=== PATIENT | female | born 1975 | race Caucasian/White ===

== ENCOUNTER 2016-12-04 02:26 | Emergency (ER) | payer SELFPAY ==
[~2016-12-04] VITALS: Ht 175.3 cm; Wt 72.0 kg
[~2016-12-04 02:26] MED LIST: FLUTI110I INH; PRED20 PO; VENTAER INH
[2016-12-04 02:28] VITALS: BP 138/83; PULSE 112; RESP 22; TEMP 98.5; O2SAT 92
[2016-12-04 02:50] VITALS: BP 132/92; PULSE 106; RESP 24; O2SAT 93
[2016-12-04] MEDS ORDERED: methylPREDNISolone SOD SUCC 125 MG/2 ML VIAL IVP ONE (03:00)
[2016-12-04] MEDS ORDERED: SODIUM CHLORIDE 0.9% FLUSH 5 ML FLUSH IVF PRN (03:00)
[2016-12-04 03:19] VITALS: O2SAT 92
[2016-12-04] MEDS: RESP: ALBUTEROL 2.5 MG/IPRATROPIUM 0.5 MG NEB (SCH) INH (03:19)
[2016-12-04 03:35] LABS: AUTOMATED NEUTROPHIL # 5.9 TH/MM3 (1.8-7.7); BASOPHIL % 0.5 % (0.0-2.0); EOSINOPHIL % 12.3 % (0.0-4.0); HEMATOCRIT 38.3 % (35.0-46.0); LYMPH % 13.6 % (9.0-44.0); LYMPHOCYTE # 1.1 TH/MM3 (1.0-4.8); MEAN CELL VOLUME 73.4 FL (80.0-100.0); MEAN CORPUSCULAR HEMOGLOBIN 23.7 PG (27.0-34.0); MEAN CORPUSCULAR HGB CONC 32.3 % (32.0-36.0); MONO % 3.2 % (0.0-8.0); NEUT % 70.4 % (16.0-70.0); PLATELET COUNT 334 TH/MM3 (150-450); RED BLOOD COUNT 5.22 MIL/MM3 (4.00-5.30); RED CELL DISTRIBUTION WIDTH 15.4 % (11.6-17.2); WHITE BLOOD COUNT 8.4 TH/MM3 (4.0-11.0)
--- NOTE | 2016-12-04 04:04 | PD ---
HPI Chief Complaint: Respiratory Symptoms Time Seen by Provider: 02:43 Travel History International Travel<30 days: No Contact w/Intl Traveler<30days: No Traveled to known affect area: No History of Present Illness HPI The patient is a 41 year old female who presents to the [facility] emergency department with a history of shortness of breath that she reports became worse over the last 2 days. She reports that she has a history of COPD. She reports that she is on Flovent and Ventolin. She denies having a primary care physician currently is she recently moved back to the area. The patient reports that over the last 2 days she's also had increasing cough and congestion. She reports that her cough is at times productive of a yellow to gonzalez sputum. The patient incidentally also reports that she injects IV drugs. She reports that she last injected opiates yesterday. She denies having any chest pain or pressure. She denies having any back pain or joint pain. She reports that she last had a fever last week with a MAXIMUM TEMPERATURE of 102. The patient denies any recent neck pain,abdominal pain, vomiting, diarrhea, urinary symptoms, or neurologic symptoms. [facility] Past Medical History Narrative Medical The patient's past medical history is significant for asthma, COPD, cerebrovascular accident in 2006 without any residual deficits, history of IV drug use. Asthma: Yes Blood Disorders: No Bipolar Disorder: Yes Anxiety: No Depression: No Cancer: No Cardiovascular Problems: No COPD: Yes Cerebrovascular Accident: Yes (2006) Diabetes: No Diminished Hearing: No Endocrine: No Gastrointestinal Disorders: No Genitourinary: No Immune Disorder: No Implanted Vascular Access Dvce: Yes Musculoskeletal: Yes Neurologic: Yes (CVA 09/30) Psychiatric: Yes (DIAGNOSED BI-POLAR 1987) Reproductive: No Respiratory: Yes (COPD, ASTHMA) Immunizations Current: Yes Thyroid Disease: No Tetanus Vaccination: < 5 Years Influenza Vaccination: No ?: Not LMP: ENDED 3 DAYS AGO : 2 Para: 2 Tubal Ligation: Yes Past Surgical History Narrative Surgical The patient's past surgical history is significant for a likely section, breast implants, bilateral tubal ligation, abdominoplasty. 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) Allergies-Medications (Allergen,Severity, Reaction): Coded Allergies: No Known Allergies (Verified , 12/04/16) Reported Meds & Prescriptions Reported Meds & Active Scripts Active Levaquin (Levofloxacin) 750 Mg Tab 750 Mg PO DAILY 6 Days Medrol Dosepak (Methylprednisolone) 4 Mg Dspk 4 Mg PO DIRECTED Per Pharmacist direction Ventolin Hfa 18 GM Inh (Albuterol Sulfate) 90 Mcg/Act Aer 2 Puff INH Q4H PRN Flovent Hfa 12 GM Inh (Fluticasone Propionate) 110 Mcg/Act Inh 2 Puff INH BID Reported Ventolin Hfa 18 GM Inh (Albuterol Sulfate) 90 Mcg/Act Aer 2 Puff INH Q4H PRN Review of Systems Except as stated in HPI: all other systems reviewed are Neg General / Constitutional: Positive: Fever, No: Chills Eyes: No: Visual changes HENT: Positive: Congestion, No: Headaches, Rhinorrhea Cardiovascular: Positive: Dyspnea on exertion, No: Chest Pain or Discomfort, Diaphoresis Respiratory: Positive: Cough, Shortness of Breath, Wheezing Gastrointestinal: No: Nausea, Vomiting, Diarrhea, Abdominal Pain Genitourinary: No: Dysuria Musculoskeletal: No: Pain Skin: No Rash Neurologic: No: Weakness, Focal Abnormalities, Change in Mentation, Slurred Speech, Sensory Disturbance Psychiatric: No: Depression Endocrine: No: Polydipsia Hematologic/Lymphatic: No: Easy Bruising Physical Exam Narrative General: The patient is a well-developed well-nourished female in no acute distress, initial O2 saturation on room air is in the upper 80s. Head and Neck exam: Head is normocephalic atraumatic. Eyes: Pupils are equal round and reactive to light. Nose: Midline septum with pink mucous membranes Mouth: Dentition unremarkable. Moist mucus membranes. Posterior oropharynx is not erythematous. No tonsillar hypertrophy. Uvula midline. Airway patent. Neck: No palpable lymphadenopathy. No nuchal rigidity. No thyromegaly. No spinous process tenderness to palpation, no step-off or crepitus, no erythema or ecchymosis. Cardiovascular: Regular rate and rhythm without murmurs, gallops, or rubs. Lungs: Expiratory wheezes are audible throughout bilateral lung mccabe with accessory muscle use. No tripoding. No paroxysmal abdominal breathing. No conversational dyspnea. Abdomen: Soft, without tenderness to palpation in all 4 quadrants of the abdomen. No guarding, rebound, or rigidity. Normal bowel sounds are audible. Extremities: No clubbing, cyanosis, or edema. 2+ pulses in all 4 extremities. No calf tenderness on palpation. Back: No spinous process tenderness to palpation. No costovertebral angle tenderness to palpation. Neurologic Exam: Grossly nonfocal. Skin Exam: No rash noted. Intact skin that is warm and dry. Data Data Last Documented VS Vital Signs Date Time Temp Pulse Resp B/P Pulse Ox O2 Delivery O2 Flow Rate FiO2 12/04/16 04:16 111 24 120/75 95 Nasal Cannula 2 12/04/16 02:28 98.5 Orders Electrocardiogram (12/04/16 02:54) Complete Blood Count With Diff (12/04/16 02:54) Comprehensive Metabolic Panel (12/04/16 02:54) Blood Culture (12/04/16 02:54) C-Reactive Protein (Crp) (12/04/16 02:54) Urinalysis - C+S If Indicated (12/04/16 02:54) Westergren Sedimentation Rate (12/04/16 02:54) Magnesium (Mg) (12/04/16 02:54) Chest, Single Ap (12/04/16 02:54) Iv Access Insert/Monitor (12/04/16 02:54) Ecg Monitoring (12/04/16 02:54) Oximetry (12/04/16 02:54) Ed Urine Pregnancytest Poc (12/04/16 02:54) Lactic Acid Sepsis Protocol (12/04/16 02:54) Sodium Chloride 0.9% Flush (Ns Flush) (12/04/16 03:00) Methylprednisolone So Succ Inj (Solumedr (12/04/16 03:00) Albuterol-Ipratropium Neb (Duoneb Neb) (12/04/16 03:00) Levofloxacin 750 Mg Premix Inj (Levaquin (12/04/16 04:15) Labs Laboratory Tests Test 12/04/16 03:00 White Blood Count 8.4 TH/MM3 Red Blood Count 5.22 MIL/MM3 Hemoglobin 12.4 GM/DL Hematocrit 38.3 % Mean Corpuscular Volume 73.4 FL Mean Corpuscular Hemoglobin 23.7 PG Mean Corpuscular Hemoglobin 32.3 % Concent Red Cell Distribution Width 15.4 % Platelet Count 334 TH/MM3 Mean Platelet Volume 9.3 FL Neutrophils (%) (Auto) 70.4 % Lymphocytes (%) (Auto) 13.6 % Monocytes (%) (Auto) 3.2 % Eosinophils (%) (Auto) 12.3 % Basophils (%) (Auto) 0.5 % Neutrophils # (Auto) 5.9 TH/MM3 Lymphocytes # (Auto) 1.1 TH/MM3 Monocytes # (Auto) 0.3 TH/MM3 Eosinophils # (Auto) 1.0 TH/MM3 Basophils # (Auto) 0.0 TH/MM3 CBC Comment AUTO DIFF Differential Comment AUTO DIFF CONFIRMED Platelet Estimate NORMAL Platelet Morphology Comment NORMAL Ovalocytes 1+ Erythrocyte Sedimentation Rate 19 mm/hr Sodium Level 138 MEQ/L Potassium Level 4.1 MEQ/L Chloride Level 104 MEQ/L Carbon Dioxide Level 27.4 MEQ/L Anion Gap 7 MEQ/L Blood Urea Nitrogen 11 MG/DL Creatinine 0.65 MG/DL Estimat Glomerular Filtration 100 ML/MIN Rate Random Glucose 89 MG/DL Lactic Acid Level 0.6 mmol/L Calcium Level 8.8 MG/DL Magnesium Level 2.1 MG/DL Total Bilirubin 0.8 MG/DL Aspartate Amino Transf 12 U/L (AST/SGOT) Alanine Aminotransferase 11 U/L (ALT/SGPT) Alkaline Phosphatase 65 U/L C-Reactive Protein LESS THAN 0.29 MG/DL Total Protein 7.5 GM/DL Albumin 3.6 GM/DL MDM Medical Decision Making Medical Screen Exam Complete: Yes Emergency Medical Condition: Yes Medical Record Reviewed: Yes Differential Diagnosis COPD exacerbation, versus acute bronchitis, versus pneumonia Narrative Course During the course of the patients emergency department visit, the patients history, examination, and differential diagnosis were reviewed with the patient. The patient had IV access obtained and blood work sent for analysis. The patient's placed on a ekg monitor with oximetry and blood pressure monitoring. An EKG was done on arrival. The patient's EKG reveals a sinus tachycardia rate of 105, downsloping of the ST segment in lead V3, T waves are inverted in V1, no acute ST segment elevation. The patient was provided Solu-Medrol 125 mg IV, DuoNeb 3 were administered. The patient was given Levaquin 750 mg IV. The patients laboratory studies were reviewed and remarkable for a white count of 8.4, hemoglobin 12.4, platelets 334 with 70.4 neutrophils, 12.3 eosinophils, sedimentation rate is 19, CMP is unremarkable, C-reactive protein less than 0.29 , lactic acid 0.6. Radiology studies were reviewed and remarkable for bibasilar subsegmental atelectasis area no other acute abnormality. On reexamination, the patient has had improvement in her symptoms and is sleeping, however she still requires nasal cannula O2 and is saturating with 2 L 92%. Because of this, I recommended admission for evaluation and continued IV steroid, nebulizer treatments, however the patient reports that she has no one to take care of her dog. The patient will be leaving AGAINST MEDICAL ADVICE. The patient will be given a prescription for a refill of her Ventolin inhaler, Medrol Dosepak taper, and Levaquin. Sepsis Criteria SIRS Criteria (2 or more): Heart rate over 90, RR > 20 or PaCO2 < 32 Sepsis Criteria (SIRS+source): Infect source susp/known Diagnosis Primary Impression: COPD exacerbation Additional Impression: Acute bronchitis Qualified Code: J20.9 - Acute bronchitis, unspecified organism Referrals: Patient Assistance Program 1 day Patient Instructions: Acute Bronchitis (ED), COPD (Chronic Obstructive Pulmonary Disease) (ED), General Instructions Med/Other Pt SpecificInfo: Prescription(s) given Scripts Levofloxacin (Levaquin)750 Mg Phg868 Mg PO DAILY 6 Days Ref 0 Prov:Clau Sexton MD 12/04/16 Methylprednisolone Dosepak (Medrol Dosepak)4 Mg Dspk4 Mg PO DIRECTED #1 DSPK Ref 0 Per Pharmacist direction Prov:Clau Sexton MD 12/04/16 Albuterol 18 GM Inh (Ventolin Hfa 18 GM Inh)90 Mcg/Act Aer2 Puff INH Q4H PRN ( SHORTNESS OF BREATH) #1 INHALER Ref 0 Prov:Clau Sexton MD 12/04/16 Disposition: 07 AGAINST MEDICAL ADVICE Condition: Clau Eller MD Dec 04, 2016 04:04
[2016-12-04 04:09] LABS: HEMO FLAGS AUTO DIFF
[2016-12-04 04:11] LABS: ALKALINE PHOSPHATASE 65 U/L (45-117); TOTAL BILIRUBIN ADULT 0.8 MG/DL (0.2-1.0)
[2016-12-04] MEDS ORDERED: LEVOFLOXACIN 750 MG PREMIX INJ 150 ML IV ONE (04:15)
[2016-12-04 04:16] VITALS: BP 120/75; PULSE 111; RESP 24; O2SAT 95
[2016-12-04 04:24] LABS: ALT (GPT) 11 U/L (10-53); ANION GAP 7 MEQ/L (5-15); AST (GOT) 12 U/L (15-37); BICARBONATE 27.4 MEQ/L (21.0-32.0); BLOOD UREA NITROGEN 11 MG/DL (7-18); CHLORIDE 104 MEQ/L (98-107); GLOMERULAR FILTRATION RATE 100 ML/MIN (>89); MAGNESIUM 2.1 MG/DL (1.5-2.5); POTASSIUM 4.1 MEQ/L (3.5-5.1); SODIUM (NA) 138 MEQ/L (136-145)
[2016-12-04 04:35] LABS: OVALOCYTES 1+ (NORMAL); PLATELET ESTIMATE SMEAR NORMAL (NORMAL); PLATELET MORPHOLOGY NORMAL (NORMAL); SCAN/DIFF AUTO DIFF CONFIRMED
[2016-12-04] MEDS ORDERED: LEVA750T PO (04:53)
[2016-12-04] MEDS ORDERED: VENTAER INH (04:53)
[2016-12-04] MEDS ORDERED: MEDR4PAK PO (04:53)
--- NOTE | 2016-12-04 05:31 | RADRPT ---
EXAM DATE/TIME: 12/04/2016 03:19 [place] COMPARISON: No previous studies available for comparison. INDICATIONS : Short of breath. MEDICAL HISTORY : Chronic obstructive pulmonary disease. SURGICAL HISTORY : Breast augmentation. ENCOUNTER: Initial ACUITY: 3 days PAIN SCORE: 4/10 LOCATION: Bilateral chest FINDINGS: A single view of the chest demonstrates the lungs to be hyperaerated without evidence of mass, infilt rate or effusion. Minimal bibasilar subsegmental atelectasis. The cardiomediastinal contours are unre markable. Osseous structures are intact. CONCLUSION: Bibasilar subsegmental atelectasis. Man Craig MD on December 04, 2016 at 5:29 Board Certified Radiologist. This report was verified electronically.
--- NOTE | 2016-12-04 22:29 | EKG ---
Date Performed: 12/04/2016 Time Performed: 04:10:17 PTAGE: 41 years EKG: SINUS TACHYCARDIA ABNORMAL RHYTHM ECG NO PREVIOUS TRACING DOCTOR: Tyrone Bergeron Interpretating Date/Time 12/04/2016 22:26:12
== END 2016-12-04 07:34 | disposition left against medical advice (07) ==
LOC: NEPE 02:26
DX: J44.1 Chronic obstructive pulmonary disease with (acute) exacerbation (principal); J20.9 Acute bronchitis, unspecified; J45.909 Unspecified asthma, uncomplicated; F11.90 Opioid use, unspecified, uncomplicated; R94.31 Abnormal electrocardiogram [ECG] [EKG]
CPT/HCPCS: 71010; 80053; 83605; 83735; 84703; 85025; 85652; 86140; 87040; 93005; 94640; 94664; 96365; 96366; 96375; 99284; J1956; J2930

== ENCOUNTER 2017-01-02 20:31 | Emergency (ER) | payer SELFPAY ==
[~2017-01-02] VITALS: Ht 175.3 cm; Wt 76.0 kg
[~2017-01-02 20:31] MED LIST changes: +LEVA750T PO; +MEDR4PAK PO; -PRED20 PO
[2017-01-02 20:35] VITALS: BP 147/76; PULSE 117; RESP 24; TEMP 98.1; O2SAT 86
[2017-01-02 20:59] VITALS: RESP 22; O2SAT 93
[2017-01-02] MEDS ORDERED: predniSONE 20 MG TAB PO ONE (21:00)
[2017-01-02] MEDS ORDERED: AZITHROMYCIN 250 MG TAB PO ONE (21:00)
[2017-01-02] MEDS: RESP: ALBUTEROL 2.5 MG/IPRATROPIUM 0.5 MG NEB (SCH) INH ×2 (21:13→21:14)
[2017-01-02] MEDS ORDERED: FLUTI220I INH (21:20)
[2017-01-02] MEDS ORDERED: PRED-503 PO (21:20)
[2017-01-02] MEDS ORDERED: AZIT250T3 PO (21:20)
[2017-01-02] MEDS ORDERED: VENTAER INH (21:20)
--- NOTE | 2017-01-02 21:20 | PD ---
HPI Chief Complaint: Respiratory Symptoms Time Seen by Provider: 20:40 Travel History International Travel<30 days: No Contact w/Intl Traveler<30days: No Traveled to known affect area: No History of Present Illness HPI Is a 41-year-old woman with COPD, symptoms most days, getting her care entirely to the emergency department, out of her medications, who presents with worsening COPD symptoms. She has cough, shortness of breath. She has a history of active IV drug use. Symptoms been worse past 2 days. History Past Medical History Narrative Medical COPD Active IV drug use History of CVA History of bipolar disorder Tetanus Vaccination: > 5 Years LMP: 01/01/17 : 2 Para: 2 Social History Alcohol Use: No Tobacco Use: No (quit 1 year ago) Allergies-Medications (Allergen,Severity, Reaction): Coded Allergies: No Known Allergies (Verified , 01/02/17) Reported Meds & Prescriptions Reported Meds & Active Scripts Active Levaquin (Levofloxacin) 750 Mg Tab 750 Mg PO DAILY 6 Days Medrol Dosepak (Methylprednisolone) 4 Mg Dspk 4 Mg PO DIRECTED Per Pharmacist direction Ventolin Hfa 18 GM Inh (Albuterol Sulfate) 90 Mcg/Act Aer 2 Puff INH Q4H PRN Flovent Hfa 12 GM Inh (Fluticasone Propionate) 110 Mcg/Act Inh 2 Puff INH BID Reported Ventolin Hfa 18 GM Inh (Albuterol Sulfate) 90 Mcg/Act Aer 2 Puff INH Q4H PRN Review of Systems Except as stated in HPI: all other systems reviewed are Neg Physical Exam Narrative GENERAL: 41-year-old woman, no acute distress. SKIN: Warm and dry. HEAD: Atraumatic. Normocephalic. CARDIOVASCULAR: Regular rate and rhythm. No murmur appreciated. RESPIRATORY: Mild respiratory distress. Moderate diffuse wheezing. No Rales or rhonchi. GASTROINTESTINAL: Abdomen soft, non-tender, nondistended. Hepatic and splenic margins not palpable. MUSCULOSKELETAL: No obvious deformities. No edema. NEUROLOGICAL: Awake and alert. No obvious cranial nerve deficits. Motor grossly within normal limits. Normal speech. PSYCHIATRIC: Appropriate mood and affect; insight and judgment normal. Data Data Last Documented VS Vital Signs Date Time Temp Pulse Resp B/P Pulse Ox O2 Delivery O2 Flow Rate FiO2 01/02/17 20:59 22 93 Nasal Cannula 2 01/02/17 20:35 98.1 117 147/76 Orders Albuterol-Ipratropium Neb (Duoneb Neb) (01/02/17 21:00) Azithromycin (Zithromax) (01/02/17 21:00) Prednisone (Deltasone) (01/02/17 21:00) MDM Medical Decision Making Medical Screen Exam Complete: Yes Emergency Medical Condition: Yes Differential Diagnosis COPD, bronchitis, pneumonia, ACS, other Narrative Course Medical decision making 41-year-old woman of worsening COPD symptoms in the setting of being out of medications. States he cannot afford primary care control her medications. Recommended to follow up with patient assistance. No evidence of severe pneumonia or pneumothorax or other complication. Recommend outpatient follow- up. Diagnosis Primary Impression: COPD exacerbation Patient Instructions: General Instructions Additional Instructions: Take prednisone as prescribed. Take albuterol every 4-6 hours as prescribed. Use Flovent twice daily as prescribed. Follow-up with her primary physician for better control of her baseline COPD. Avoid IV drug use. Return to the emergency department for any new or worsening symptoms. Med/Other Pt SpecificInfo: Prescription(s) given Scripts Azithromycin 250 Mg Lpn790 Mg PO DAILY 4 Days Prov:Gray Chappell MD 01/02/17 Fluticasone 12 GM Inh (Flovent Hfa 12 GM Inh)220 Mcg/Act Inh2 Puff INH BID #1 INHALER Use daily at the same time. Prov:Gray Chappell MD 01/02/17 Albuterol 18 GM Inh (Ventolin Hfa 18 GM Inh)90 Mcg/Act Aer2 Puff INH Q4-6H PRN ( SHORTNESS OF BREATH) #1 INHALER Ref 6 Prov:Gray Chappell MD 01/02/17 Prednisone (Deltasone)20 Mg Tab40 Mg PO DAILY 10 Days Prov:Gray Chappell MD 01/02/17 Disposition: 01 DISCHARGE HOME Condition: Stable Gray Chappell MD Jan 02, 2017 21:20
[2017-01-02 21:32] VITALS: BP 138/72; PULSE 99; RESP 16; O2SAT 94
[2017-01-02] MEDS ORDERED: NEBULIZER1 MI1 (21:32)
== END 2017-01-02 21:42 | disposition home or self-care (01) ==
LOC: NEPC 20:31
DX: J44.1 Chronic obstructive pulmonary disease with (acute) exacerbation (principal)
CPT/HCPCS: 94640; 94664; 99283; J7512

== ENCOUNTER 2017-05-02 13:26 | Emergency (ER) | payer SELFPAY ==
[~2017-05-02] VITALS: Ht 175.3 cm; Wt 75.0 kg
[~2017-05-02 13:26] MED LIST changes: +AZIT250T3 PO; +FLUTI220I INH; +NEBULIZER1 MI1; +PRED-503 PO
[2017-05-02 13:29] VITALS: BP 123/75; PULSE 108; RESP 28; TEMP 97.8; O2SAT 93
--- NOTE | 2017-05-02 13:29 | PD ---
Physical Exam Date Seen by Provider: May 02, 2017 Time Seen by Provider: 13:28 [facility] Supervised Visit with JOHANNA: No Narrative Course 42 YO F with complaint of SOB since yesterday. PMH COPD, bronchitis. Denies current smoking. Vitals reviewed. Awaiting bed placement. Nessa Armenta May 02, 2017 13:29
[2017-05-02] MEDS ORDERED: ALBU1.25 NEB (13:41)
--- NOTE | 2017-05-02 13:43 | PD ---
HPI Chief Complaint: Respiratory Symptoms Time Seen by Provider: 13:40 Travel History International Travel<30 days: No Contact w/Intl Traveler<30days: No Traveled to known affect area: No History of Present Illness HPI Patient comes in complaining of COPD exacerbation that began yesterday. Patient states she's had similar in the past most recently approximately a month ago when she was on steroids that seemed to help. Patient has been using her inhaler with minimal relief of her symptoms. Patient thinks her allergies are making things worse. Patient denies any chest pain, fevers, nausea, vomiting, headache, developing, or . PFSH Past Medical History Asthma: Yes Blood Disorders: No Bipolar Disorder: Yes Anxiety: No Depression: No Cancer: No Cardiovascular Problems: No COPD: Yes Cerebrovascular Accident: Yes (2006) Diabetes: No Diminished Hearing: No Endocrine: No Gastrointestinal Disorders: No Genitourinary: No Immune Disorder: No Implanted Vascular Access Dvce: Yes Musculoskeletal: Yes Neurologic: Yes (CVA 09/30) Psychiatric: Yes (DIAGNOSED BI-POLAR 1987) Reproductive: No Respiratory: Yes (COPD) Immunizations Current: Yes Thyroid Disease: No ?: Unknown LMP: today : 2 Para: 2 Tubal Ligation: Yes Past Surgical History Abdominal Surgery: Yes (LIPOSUCTION) AICD: No Arteriovenous Shunt: No Body Medical Devices: BREAST IMPLANTS Cardiac Surgery: No Ear Surgery: No Endocrine Surgery: No Eye Surgery: No Genitourinary Surgery: No Gynecologic Surgery: Yes (TUBAL LIGATION) Insulin Pump: No Joint Replacement: No Neurologic Surgery: No Oral Surgery: No Pacemaker: No Thoracic Surgery: Yes (BREAST AUGMENTATION) Other Surgery: Yes (BREAST AUG, TUMMY TUCK) Social History Alcohol Use: No Tobacco Use: No (quit 1 year ago) Substance Use: No (hx iv drug user, heroin used on 01/02/17) Allergies-Medications (Allergen,Severity, Reaction): Coded Allergies: No Known Allergies (Verified , 01/02/17) Reported Meds & Prescriptions Reported Meds & Active Scripts Active Medrol Dosepak (Methylprednisolone) 4 Mg Dspk 4 Mg PO DIRECTED Per Pharmacist direction Ventolin Hfa 18 GM Inh (Albuterol Sulfate) 90 Mcg/Act Aer 2 Puff INH Q4-6H PRN Reported Albuterol Neb (Albuterol Sulfate) 1.25 Mg/3 Ml Neb 1.25 Mg NEB Q4HR NEB PRN Ventolin Hfa 18 GM Inh (Albuterol Sulfate) 90 Mcg/Act Aer 2 Puff INH Q4H PRN Review of Systems Except as stated in HPI: all other systems reviewed are Neg Physical Exam Narrative GENERAL: Well-developed, well nourished, in mild respiratory distress, and non- ill appearing. SKIN: Focused skin assessment warm and dry. HEAD: Atraumatic. Normocephalic. EYES: Pupils equal and round. EOMI. No scleral icterus. No injection or drainage. ENT: No nasal bleeding or discharge. Mucous membranes pink and moist. NECK: Trachea midline. Supple. No nuclear rigidity. CARDIOVASCULAR: Regular rate and rhythm. No murmur appreciated. RESPIRATORY: Accessory muscle use. Respiratory distress. Decreased breath sounds and wheezing noted throughout. Patient is able to answer questions in full sentences, but has pause in between each since. MUSCULOSKELETAL: No obvious deformities. No clubbing. No cyanosis. No edema. Full range of motion. NEUROLOGICAL: Awake and alert. No obvious cranial nerve deficits. Motor grossly within normal limits. Normal speech. PSYCHIATRIC: Appropriate mood and affect; insight and judgment normal. Data Data Last Documented VS Vital Signs Date Time Temp Pulse Resp B/P Pulse Ox O2 Delivery O2 Flow Rate FiO2 05/02/17 14:01 97 Nasal Cannula 4.00 05/02/17 13:36 19 05/02/17 13:29 97.8 108 123/75 Orders Albuterol-Ipratropium Neb (Duoneb Neb) (05/02/17 13:45) Complete Blood Count With Diff (05/02/17 13:37) Basic Metabolic Panel (Bmp) (05/02/17 13:37) Iv Access Insert/Monitor (05/02/17 13:37) Ecg Monitoring (05/02/17 13:37) Oximetry (05/02/17 13:37) Oxygen Administration (05/02/17 13:37) Chest, Single Ap (05/02/17 13:37) Sodium Chloride 0.9% Flush (Ns Flush) (05/02/17 13:45) Methylprednisolone So Succ Inj (Solumedr (05/02/17 13:45) Potassium Chloride (Kcl) (05/02/17 15:00) Labs Laboratory Tests Test 05/02/17 14:00 White Blood Count 5.3 TH/MM3 Red Blood Count 4.91 MIL/MM3 Hemoglobin 12.0 GM/DL Hematocrit 38.2 % Mean Corpuscular Volume 77.8 FL Mean Corpuscular Hemoglobin 24.3 PG Mean Corpuscular Hemoglobin 31.3 % Concent Red Cell Distribution Width 16.3 % Platelet Count 221 TH/MM3 Mean Platelet Volume 9.4 FL Neutrophils (%) (Auto) 50.8 % Lymphocytes (%) (Auto) 23.3 % Monocytes (%) (Auto) 7.8 % Eosinophils (%) (Auto) 17.0 % Basophils (%) (Auto) 1.1 % Neutrophils # (Auto) 2.7 TH/MM3 Lymphocytes # (Auto) 1.2 TH/MM3 Monocytes # (Auto) 0.4 TH/MM3 Eosinophils # (Auto) 0.9 TH/MM3 Basophils # (Auto) 0.1 TH/MM3 CBC Comment DIFF FINAL Differential Comment Sodium Level 141 MEQ/L Potassium Level 3.3 MEQ/L Chloride Level 102 MEQ/L Carbon Dioxide Level 33.6 MEQ/L Anion Gap 5 MEQ/L Blood Urea Nitrogen 7 MG/DL Creatinine 0.72 MG/DL Estimat Glomerular Filtration 89 ML/MIN Rate Random Glucose 101 MG/DL Calcium Level 8.5 MG/DL MDM Medical Decision Making Medical Screen Exam Complete: Yes Emergency Medical Condition: Yes Interpretation(s) Chest x-ray read by the radiologist shows: No acute disease. Differential Diagnosis COPD exacerbation, bronchitis, pneumonia, other Narrative Course 1445 patient reassessed reports improvement of symptoms status post breathing treatment and steroids. Lungs reassessed lung sounds improved scant wheezing noted throughout. No longer using accessory muscles. And talking much easier now. The patient looks great and improved well with Nebulizer and steroid medication. The patient is moving air well and in no distress nor significant dyspnea, and oxygen saturation is within normal limits. There is no clinical evidence to suggest pneumonia at this time. Diagnosis, plan of care and management were discussed with the patient who agreed with plan and feels better and ready to go home. The patient was instructed to return if worsen, worsening difficulty breathing or wheezing, persistent fever, chest pain or as needed. Patient in no obvious distress upon re-evaluation. All pertinent laboratory/ Radiology result(s) discussed with patient. Discussed patient with Dr. Saunders, who saw and evaluated the patient and is in agreement with plan of care and disposition. Any questions/concerns in reference to patient diagnosis/ condition discussed and clarified prior to patient's discharge. Reinforced sheer importance of close follow up with patient's primary physician or primary care clinic. Instructed patient to return to ED immediately, if symptoms return/ worsen. Pt showed understanding of above instructions. Further instructions and recommendations were detailed in discharge paperwork. Pt ambulated without difficulty out of ED at discharge. Diagnosis Primary Impression: COPD exacerbation Additional Impression: Hypokalemia Referrals: [facility] Patient Instructions: COPD (Chronic Obstructive Pulmonary Disease) (ED), General Instructions, Hypokalemia (ED) Additional Instructions: Follow-up with your primary care physician next week for reevaluation. Take all medication as prescribed. Return to the emergency department if symptoms get worse. Med/Other Pt SpecificInfo: Prescription(s) given Scripts Methylprednisolone Dosepak (Medrol Dosepak)4 Mg Dspk4 Mg PO DIRECTED #1 DSPK Ref 0 Per Pharmacist direction Prov:Shea Saunders MD 05/02/17 Albuterol 18 GM Inh (Ventolin Hfa 18 GM Inh)90 Mcg/Act Aer2 Puff INH Q4-6H PRN ( SHORTNESS OF BREATH) #1 INHALER Ref 0 Prov:Shea Saunders MD 05/02/17 Disposition: 01 DISCHARGE HOME Condition: Stable Narinder Panchal May 02, 2017 13:43
[2017-05-02] MEDS ORDERED: SODIUM CHLORIDE 0.9% FLUSH 10 ML FLUSH IVF PRN (13:45)
[2017-05-02] MEDS ORDERED: methylPREDNISolone SOD SUCC 125 MG/2 ML VIAL IVP ONE (13:45)
[2017-05-02 14:01] VITALS: O2SAT 97
[2017-05-02] MEDS: RESP: ALBUTEROL 2.5 MG/IPRATROPIUM 0.5 MG NEB (SCH) INH (14:01)
--- NOTE | 2017-05-02 14:34 | RADRPT ---
EXAM DATE/TIME: 05/02/2017 14:06 [place] COMPARISON: CHEST SINGLE AP, December 04, 2016, 3:19. INDICATIONS : Short of breath MEDICAL HISTORY : Chronic obstructive pulmonary disease. Asthma SURGICAL HISTORY : None. ENCOUNTER: Initial ACUITY: 1 day PAIN SCORE: 5/10 LOCATION: Bilateral chest FINDINGS: A single view of the chest demonstrates the lungs to be symmetrically aerated without evidence of mas s, infiltrate or effusion. The cardiomediastinal contours are unremarkable. Osseous structures are intact. CONCLUSION: No acute disease. Chad aBer MD FACR on May 02, 2017 at 14:31 Board Certified Radiologist. This report was verified electronically.
[2017-05-02 14:36] LABS: AUTOMATED NEUTROPHIL # 2.7 TH/MM3 (1.8-7.7); BASOPHIL # 0.1 TH/MM3 (0-0.2); BASOPHIL % 1.1 % (0.0-2.0); EOSINOPHIL # 0.9 TH/MM3 (0-0.4); HEMATOCRIT 38.2 % (35.0-46.0); HEMO FLAGS DIFF FINAL; LYMPH % 23.3 % (9.0-44.0); LYMPHOCYTE # 1.2 TH/MM3 (1.0-4.8); MEAN CELL VOLUME 77.8 FL (80.0-100.0); MEAN CORPUSCULAR HEMOGLOBIN 24.3 PG (27.0-34.0); MEAN CORPUSCULAR HGB CONC 31.3 % (32.0-36.0); MONO % 7.8 % (0.0-8.0); NEUT % 50.8 % (16.0-70.0); PLATELET COUNT 221 TH/MM3 (150-450); RED BLOOD COUNT 4.91 MIL/MM3 (4.00-5.30); RED CELL DISTRIBUTION WIDTH 16.3 % (11.6-17.2); WHITE BLOOD COUNT 5.3 TH/MM3 (4.0-11.0)
[2017-05-02 14:53] LABS: BICARBONATE 33.6 MEQ/L (21.0-32.0); POTASSIUM 3.3 MEQ/L (3.5-5.1)
[2017-05-02] MEDS ORDERED: MEDR4PAK PO (15:00)
[2017-05-02] MEDS ORDERED: POTASSIUM CHLORIDE 20 MEQ CONTROLLED RELEASE TAB PO ONE (15:00)
[2017-05-02] MEDS ORDERED: VENTAER INH (15:00)
--- NOTE | 2017-05-02 15:14 | PD ---
Data Data Last Documented VS Vital Signs Date Time Temp Pulse Resp B/P Pulse Ox O2 Delivery O2 Flow Rate FiO2 05/02/17 14:01 97 Nasal Cannula 4.00 05/02/17 13:36 19 05/02/17 13:29 97.8 108 123/75 Orders Albuterol-Ipratropium Neb (Duoneb Neb) (05/02/17 13:45) Complete Blood Count With Diff (05/02/17 13:37) Basic Metabolic Panel (Bmp) (05/02/17 13:37) Iv Access Insert/Monitor (05/02/17 13:37) Ecg Monitoring (05/02/17 13:37) Oximetry (05/02/17 13:37) Oxygen Administration (05/02/17 13:37) Chest, Single Ap (05/02/17 13:37) Sodium Chloride 0.9% Flush (Ns Flush) (05/02/17 13:45) Methylprednisolone So Succ Inj (Solumedr (05/02/17 13:45) Potassium Chloride (Kcl) (05/02/17 15:00) Labs Laboratory Tests Test 05/02/17 14:00 White Blood Count 5.3 TH/MM3 Red Blood Count 4.91 MIL/MM3 Hemoglobin 12.0 GM/DL Hematocrit 38.2 % Mean Corpuscular Volume 77.8 FL Mean Corpuscular Hemoglobin 24.3 PG Mean Corpuscular Hemoglobin 31.3 % Concent Red Cell Distribution Width 16.3 % Platelet Count 221 TH/MM3 Mean Platelet Volume 9.4 FL Neutrophils (%) (Auto) 50.8 % Lymphocytes (%) (Auto) 23.3 % Monocytes (%) (Auto) 7.8 % Eosinophils (%) (Auto) 17.0 % Basophils (%) (Auto) 1.1 % Neutrophils # (Auto) 2.7 TH/MM3 Lymphocytes # (Auto) 1.2 TH/MM3 Monocytes # (Auto) 0.4 TH/MM3 Eosinophils # (Auto) 0.9 TH/MM3 Basophils # (Auto) 0.1 TH/MM3 CBC Comment DIFF FINAL Differential Comment Sodium Level 141 MEQ/L Potassium Level 3.3 MEQ/L Chloride Level 102 MEQ/L Carbon Dioxide Level 33.6 MEQ/L Anion Gap 5 MEQ/L Blood Urea Nitrogen 7 MG/DL Creatinine 0.72 MG/DL Estimat Glomerular Filtration 89 ML/MIN Rate Random Glucose 101 MG/DL Calcium Level 8.5 MG/DL MDM Supervised Visit with JOHANNA: Yes Narrative Course The history, exam, and medical decision-making in the associated midlevel provider note were completed with my assistance. I reviewed and agree with the findings presented. I attest that I had a [id number] encounter with the patient on the same day, and personally performed and documented my assessment and findings in the medical record. *My assessment and Findings: This is a 42-year-old female who has a history of COPD who presents to the emergency department with increasing shortness of breath. She is diffusely wheezing on exam and has poor air movement. She was given 0 from a dilator treatments and IV steroids. She feels much better. Labs and chest x-ray are reassuring. I think patient is appropriate for therapy with prednisone and continued bronchodilators. Diagnosis Primary Impression: COPD exacerbation Additional Impression: Hypokalemia Referrals: [facility] Patient Instructions: General Instructions, Hypokalemia (ED), COPD (Chronic Obstructive Pulmonary Disease) (ED) Departure Forms: Tests/Procedures Additional Instruction: Follow-up with your primary care physician next week for reevaluation. Take all medication as prescribed. Return to the emergency department if symptoms get worse. Scripts Methylprednisolone Dosepak (Medrol Dosepak)4 Mg Dspk4 Mg PO DIRECTED #1 DSPK Ref 0 Per Pharmacist direction Prov:Shea Saunders MD 05/02/17 Albuterol 18 GM Inh (Ventolin Hfa 18 GM Inh)90 Mcg/Act Aer2 Puff INH Q4-6H PRN ( SHORTNESS OF BREATH) #1 INHALER Ref 0 Prov:Shea Saunders MD 05/02/17 Disposition: 01 DISCHARGE HOME Condition: Stable Shea Saunders MD May 02, 2017 15:14
[2017-05-02 15:22] VITALS: BP 141/67
== END 2017-05-02 15:23 | disposition home or self-care (01) ==
LOC: NEPC 13:26
DX: J44.1 Chronic obstructive pulmonary disease with (acute) exacerbation (principal); E87.6 Hypokalemia; J45.909 Unspecified asthma, uncomplicated; Z87.891 Personal history of nicotine dependence
CPT/HCPCS: 71010; 80048; 85025; 94640; 94664; 96374; 99285; J2930